=== PATIENT | female | born 1960 | race Caucasian/White ===

== ENCOUNTER 2016-09-23 14:31 | Day surgery (SDC) | payer OTHER ==
[2016-09-23] VITALS (14 sets, daily range): BP systolic 121–149; BP diastolic 69–95; PULSE 76–96; RESP 10–30; Ht 152.4 cm; Wt 74.0 kg
[~2016-09-23] VITALS: Ht 152.4 cm; Wt 74.0 kg
[~2016-09-23 14:31] MED LIST: DESFLURANE 15 MIN ONE; NO MEDS
[2016-09-23] MEDS ORDERED: CEFAZOLIN 1 GM INJ ONE (16:11)
[2016-09-23] MEDS ORDERED: MIDAZOLAM 1 MG/ML 2 ML INJ ONE (16:11)
[2016-09-23] MEDS ORDERED: METOCLOPRAMIDE 10 MG INJ ONE (16:11)
[2016-09-23] MEDS ORDERED: PROPOFOL 20 ML ONE (16:11)
[2016-09-23] MEDS ORDERED: BUPIVACAINE 0.5%/EPI (SDV) 30 ML INJ ONE (16:11)
[2016-09-23] MEDS ORDERED: EPINEPHrine 1 MG/ML 30 ML INJ ONE (16:12)
[2016-09-23] MEDS ORDERED: KETOROLAC 30 MG INJ ONE (16:30)
--- NOTE | 2016-09-23 16:30 | HPN ---
Date/Time of Note Date/Time of Note DATE: 09/23/16 TIME: 16:30 Interval H&P Admission Note Pt. seen H&P reviewed: No system changes KAITLIN DEUTSCH MD September 23, 2016 16:30
[2016-09-23] MEDS ORDERED: FENTAnyl 50 MCG/ML VIAL ONE (16:40)
[2016-09-23] MEDS ORDERED: EPINEPHrine 1 MG/ML 30 ML INJ IRR ONE (16:55)
[2016-09-23] MEDS ORDERED: HYDROmorphONE (0.2 MG/ML) 10ML SYG IV PRN ×3 (17:00)
[2016-09-23] MEDS ORDERED: MEPERIDINE 25 MG INJ IV PRN (17:00)
[2016-09-23] MEDS ORDERED: METOCLOPRAMIDE 10 MG INJ IV PRN (17:00)
[2016-09-23] MEDS ORDERED: ONDANSETRON 4 MG INJ IV PRN (17:00)
[2016-09-23] MEDS ORDERED: DIPHENHYDRAMINE 50 MG INJ IV PRN (17:00)
[2016-09-23] MEDS ORDERED: OXYCODONE/ACETAMINOPHEN (5/325) TAB PO PRN ×2 (17:00)
[2016-09-23] MEDS ORDERED: METHYLPREDNISOLONE ACET 80 MG/ML 1 ML ONE (17:11)
[2016-09-23] MEDS ORDERED: BUPIVACAINE 0.5%/EPI (SDV) 30 ML INJ INJ ONE (17:20)
[2016-09-23] MEDS ORDERED: METHYLPREDNISOLONE ACET 80 MG/ML 1 ML INJ ONE (17:20)
--- NOTE | 2016-09-24 15:53 | OPR ---
DATE OF OPERATION: 09/23/2016 PREOPERATIVE DIAGNOSIS: Right knee derangement and meniscus tear. POSTOPERATIVE DIAGNOSIS: Right knee derangement, medial and lateral meniscus tears, synovitis and c hondromalacia. PROCEDURE PERFORMED: 1. Arthroscopic partial medial and lateral meniscectomy. 2. Extensive synovectomy. 3. Chondroplasty medial femoral and tibial condyles. SURGEON: Syd Rose MD ANESTHESIA: General. ESTIMATED BLOOD LOSS: 25 mL. TOURNIQUET TIME: 25 minutes. COMPLICATIONS: None. DESCRIPTION OF PROCEDURE: The patient was taken to the operating room and general anesthetic given with intubation. Two grams of Kefzol were given for prophylaxis. Tourniquet around the right thigh . The right leg was prepped and draped in usual sterile manner, exsanguinated with an Esmarch thompson ge, tourniquet inflated to 300 mmHg. Standard medial and lateral portals were utilized. Extensive chondromalacia noted in the medial com partment with eburnation of the condyles. Lateral compartment showed early chondromalacia. Patello femoral grade II chondromalacia. The shaver was introduced and synovectomy was performed. Complex extensive tears in the medial and lateral menisci were debrided to a smooth border. No lesion s were noted. Next, a chondroplasty was performed of the medial femoral and tibial condyle. There was also a 5 x 7 mm loose body that was removed. Wound irrigated and hemostasis was obtained. Port als closed with 2-0 nylon suture, 5 mL of Xylocaine and 80 mg of Depo-Medrol injected. Anesthetic r eversed. The patient was taken to recovery in stable condition. Dictated By: SYD GONCALVES/CANDIS Conf#: [id number] DID#: [id number]
== END 2016-09-23 19:51 | disposition home or self-care (01) ==
LOC: SDS 14:31
PROVIDERS: ATTEND Specialist
DX: M23.203 Derangement of unspecified medial meniscus due to old tear or injury, right knee (principal); M23.200 Derangement of unspecified lateral meniscus due to old tear or injury, right knee; M65.861 Other synovitis and tenosynovitis, right lower leg; M94.261 Chondromalacia, right knee
CPT/HCPCS: 29880; J0171; J0690; J1040; J1170; J1885; J2250; J2765; J3010; Z7512; Z7610

== ENCOUNTER 2017-06-14 11:19 | Inpatient (IN) | END 2017-06-17 15:55 | disposition home health service (06) | DRG 470 ==

== ENCOUNTER 2019-01-15 06:22 | Day surgery (SDC) | payer OTHER ==
[~2019-01-15] VITALS: Ht 152.4 cm; Wt 69.3 kg
[~2019-01-15 06:22] MED LIST changes: +APIX2.5T PO; +ASPI325T32 PO; -DESFLURANE 15 MIN ONE; +GABA300C16 PO; -NO MEDS; +PEMPRO; +[UNRECOGNIZED DRUG - CODE] PO
[2019-01-15 06:53] VITALS: Ht 152.4 cm; Wt 69.3 kg
[2019-01-15 07:16] VITALS: BP 140/91; PULSE 67; RESP 23
[2019-01-15] MEDS ORDERED: PROPOFOL 20 ML ONE ×2 (07:26→08:17)
[2019-01-15] MEDS ORDERED: FENTAnyl 50 MCG/ML VIAL ONE (07:27)
[2019-01-15 08:29] VITALS: BP 139/74; PULSE 85; RESP 18
[2019-01-15 08:44] VITALS: BP 139/84; PULSE 79; RESP 14
== END 2019-01-15 13:39 | disposition home or self-care (01) ==
LOC: GIL 06:22
PROVIDERS: ATTEND Internal Medicine Gastroenterology
DX: Z12.11 Encounter for screening for malignant neoplasm of colon (principal); K64.4 Residual hemorrhoidal skin tags; B96.81 Helicobacter pylori [H. pylori] as the cause of diseases classified elsewhere; K29.50 Unspecified chronic gastritis without bleeding
CPT/HCPCS: 43239; 45378; 88305; 88312; J3010; Z7610